=== PATIENT | female | born 1940 | race Caucasian/White ===

== ENCOUNTER 2018-03-25 19:11 | Inpatient (IN) | payer OTHER ==
[~2018-03-25] VITALS: Ht 160 cm; Wt 37.3 kg
[~2018-03-25 19:11] MED LIST: LAC PO; LIPI10 PO; MAC100 PO; MIRALAX17 GM/Dose PO; TOR10 PO
[2018-03-25 19:48] VITALS: Ht 160 cm; Wt 37.3 kg
[2018-03-25 20:30] LABS: BASOPHIL % 0.6 % (0-2); PLATELET COUNT 233 x10^3mcL (130-400); RED CELL DISTRIBUTION WIDTH 14.1 % (11.5-14.5)
[2018-03-25 20:47] LABS: ALKALINE PHOSPHATASE 80 U/L (46-116); ALT/SGPT 29 U/L (14-59); AST/SGOT 34 U/L (15-37); BILIRUBIN TOTAL 0.53 mg/dL (0.20-1.00); CARBON DIOXIDE 25.8 mmol/L (21-32); CHLORIDE SERUM 106 mmol/L (98-107); CREATININE SERUM 0.8 mg/dL (0.6-1.0); FREE T4 1.08 ng/dL (0.76-1.46); GLUCOSE SERUM 98 mg/dL (74-106); LIPASE 155 IU/L (73-393); SODIUM SERUM 137 mmol/L (136-145); TOTAL PROTEIN, SERUM 6.8 g/dL (6.4-8.2)
[2018-03-25 21:07] LABS: CALCIUM 9.6 mg/dL (8.5-10.1)
[2018-03-26 00:26] VITALS: BP 127/56
[2018-03-26 05:26] VITALS: BP 124/60
[2018-03-26 09:15] VITALS: BP 129/39
[2018-03-26 10:48] LABS: CALCIUM 9.2 mg/dL (8.5-10.1); CARBON DIOXIDE 25.6 mmol/L (21-32); CHLORIDE SERUM 110 mmol/L (98-107); CREATININE SERUM 0.8 mg/dL (0.6-1.0); GLUCOSE SERUM 110 mg/dL (74-106); POTASSIUM SERUM 4.1 mmol/L (3.5-5.1); SODIUM SERUM 141 mmol/L (136-145)
[2018-03-26 10:53] LABS: BASOPHIL % 0.4 % (0-2); PLATELET COUNT 187 x10^3mcL (130-400); RED CELL DISTRIBUTION WIDTH 14.2 % (11.5-14.5)
[2018-03-26 17:29] VITALS: BP 123/40
[2018-03-26 20:39] VITALS: BP 115/50
[2018-03-27 05:25] VITALS: BP 123/50
[2018-03-27 09:50] VITALS: BP 145/79
[2018-03-27 12:04] VITALS: BP 145/79
== END 2018-03-27 15:29 | disposition home or self-care (01) | DRG 641 ==
LOC: ED 19:11 → MU 22:59
PROVIDERS: Emergency Medicine; Internal Medicine Nephrology
DX: E86.0 Dehydration (principal); Z68.1 Body mass index [BMI] 19.9 or less, adult; F03.90 Unspecified dementia, unspecified severity, without behavioral disturbance, psychotic disturbance, mood disturbance, and anxiety; E78.5 Hyperlipidemia, unspecified
CPT/HCPCS: 83880; 84439; J0696; J1644; J2543; J7030; J7040; Q0092

== ENCOUNTER 2018-08-28 12:24 | Inpatient (IN) | payer OTHER ==
[~2018-08-28] VITALS: Ht 162.6 cm; Wt 41.8 kg
[2018-08-28 12:25] VITALS: Ht 162.6 cm; Wt 41.8 kg
[2018-08-28 13:22] LABS: BASOPHIL % 0.1 % (0-2); RED CELL DISTRIBUTION WIDTH 14.1 % (11.5-14.5)
[2018-08-28 13:27] LABS: PLATELET COUNT 112 x10^3mcL (130-400)
[2018-08-28 13:35] LABS: UA SPECIFIC GRAVITY 1.015 (1.005-1.035); microscopic required? YES; urine erythrocyte 3+ (NEGATIVE)
[2018-08-28 13:35] LABS: ALKALINE PHOSPHATASE 81 U/L (46-116); ALT/SGPT 58 U/L (14-59); AST/SGOT 73 U/L (15-37); BILIRUBIN TOTAL 0.52 mg/dL (0.20-1.00); CALCIUM 8.8 mg/dL (8.5-10.1); CARBON DIOXIDE 22.1 mmol/L (21-32); CHLORIDE SERUM 105 mmol/L (98-107); CREATININE SERUM 1.3 mg/dL (0.6-1.0); GLUCOSE SERUM 148 mg/dL (74-106); POTASSIUM SERUM 3.4 mmol/L (3.5-5.1); SODIUM SERUM 136 mmol/L (136-145); TOTAL PROTEIN, SERUM 6.1 g/dL (6.4-8.2)
[2018-08-28 13:36] LABS: ALBUMIN 2.8 g/dL (3.4-5.0)
[2018-08-28 13:57] LABS: CK-MB 2.2 ng/mL (0-3.6)
[2018-08-28 16:35] VITALS: BP 96/33
[2018-08-28 18:58] VITALS: BP 124/53
[2018-08-28 20:00] VITALS: BP 92/50
[2018-08-29 05:28] VITALS: BP 107/50
[2018-08-29 06:32] LABS: CALCIUM 8.1 mg/dL (8.5-10.1); CARBON DIOXIDE 22.4 mmol/L (21-32); CHLORIDE SERUM 111 mmol/L (98-107); CREATININE SERUM 0.7 mg/dL (0.6-1.0); GLUCOSE SERUM 81 mg/dL (74-106); POTASSIUM SERUM 3.6 mmol/L (3.5-5.1); SODIUM SERUM 143 mmol/L (136-145)
[2018-08-29 07:20] LABS: PLATELET COUNT 103 x10^3mcL (130-400); RED CELL DISTRIBUTION WIDTH 15.3 % (11.5-14.5)
[2018-08-29 08:23] LABS: BAND NEUTROPHIL 40 % (0-10); MONOCYTE 7 % (0-7); SEGMENTED NEUTROPHILS 45 % (37-75)
[2018-08-29 08:24] LABS: PLATELET MORPHOLOGY PLATELETS NORMAL; rbc morphology (normal/abnorm) NORMAL (NORMAL)
[2018-08-29 09:30] VITALS: BP 105/39
[2018-08-29 12:35] VITALS: BP 110/47
[2018-08-29 17:05] VITALS: BP 114/41
[2018-08-29 20:57] VITALS: BP 112/55
[2018-08-30 04:32] VITALS: BP 113/45
[2018-08-30 06:19] LABS: BASOPHIL % 0.2 % (0-2)
[2018-08-30 06:35] LABS: CALCIUM 8.2 mg/dL (8.5-10.1); CARBON DIOXIDE 21.4 mmol/L (21-32); CHLORIDE SERUM 110 mmol/L (98-107); CREATININE SERUM 0.6 mg/dL (0.6-1.0); GLUCOSE SERUM 90 mg/dL (74-106); POTASSIUM SERUM 3.5 mmol/L (3.5-5.1); SODIUM SERUM 139 mmol/L (136-145)
[2018-08-30 08:18] LABS: PLATELET COUNT 104 x10^3mcL (130-400); RED CELL DISTRIBUTION WIDTH 15.1 % (11.5-14.5)
[2018-08-30 09:56] VITALS: BP 126/82
[2018-08-30] MEDS ORDERED: LEVOFLOXACIN500 M1 PO (09:58)
[2018-08-30 12:29] VITALS: BP 126/82
[2018-08-30 13:26] VITALS: BP 146/89
== END 2018-08-30 14:35 | disposition home or self-care (01) | DRG 871 ==
LOC: ED 12:24 → DU 15:16
PROVIDERS: Emergency Medicine; Internal Medicine Pulmonary Disease
DX: A41.9 Sepsis, unspecified organism (principal); G93.41 Metabolic encephalopathy; N39.0 Urinary tract infection, site not specified; R64 Cachexia; L89.321 Pressure ulcer of left buttock, stage 1; M24.50 Contracture, unspecified joint; F03.90 Unspecified dementia, unspecified severity, without behavioral disturbance, psychotic disturbance, mood disturbance, and anxiety; Z74.01 Bed confinement status
CPT/HCPCS: 83880; J0696; J1650; J7030; Q0092

== ENCOUNTER 2019-02-09 08:12 | Inpatient (IN) | payer OTHER ==
[~2019-02-09] VITALS: Ht 170.2 cm; Wt 47.2 kg
[~2019-02-09 08:12] MED LIST changes: +LEVOFLOXACIN500 M1 PO
[2019-02-09 08:22] VITALS: Ht 170.2 cm; Wt 47.2 kg
[2019-02-09 09:18] LABS: PLATELET COUNT 201 x10^3mcL (130-400); RED CELL DISTRIBUTION WIDTH 14.5 % (11.5-14.5)
[2019-02-09 09:19] LABS: BASOPHIL % 0.7 % (0-2)
[2019-02-09 09:33] LABS: CALCIUM 8.6 mg/dL (8.5-10.1); CARBON DIOXIDE 21.7 mmol/L (21-32); CHLORIDE SERUM 112 mmol/L (98-107); CREATININE SERUM 0.6 mg/dL (0.6-1.0); GLUCOSE SERUM 106 mg/dL (74-106); POTASSIUM SERUM 3.9 mmol/L (3.5-5.1); SODIUM SERUM 146 mmol/L (136-145)
[2019-02-09 09:44] LABS: ALKALINE PHOSPHATASE 82 U/L (46-116); ALT/SGPT 26 U/L (14-59); AMYLASE 69 U/L (25-115); AST/SGOT 11 U/L (15-37); BILIRUBIN TOTAL 0.4 mg/dL (0.20-1.00); CHOLESTEROL 179 mg/dL (<200); HDL CHOLESTEROL 54 mg/dL (40-60); LIPASE 146 IU/L (73-393); MAGNESIUM 1.9 mg/dL (1.8-2.4)
[2019-02-09 09:48] LABS: ALBUMIN 2.8 g/dL (3.4-5.0); T4(THYROXINE) 4.6 ug/dL (4.7-13.3); TOTAL PROTEIN, SERUM 6.1 g/dL (6.4-8.2)
[2019-02-09 10:14] LABS: microscopic required? YES; urine erythrocyte 2+ (NEGATIVE)
[2019-02-09 10:17] LABS: AMPHETAMINE QUAL UR NONE DETECTED (See below)
[2019-02-09 13:55] VITALS: BP 160/117
[2019-02-09 16:59] VITALS: BP 144/58
[2019-02-09 22:17] VITALS: BP 127/63
[2019-02-10 05:49] VITALS: BP 165/74
[2019-02-10 07:43] LABS: BASOPHIL % 0.6 % (0-2); PLATELET COUNT 191 x10^3mcL (130-400); RED CELL DISTRIBUTION WIDTH 14.4 % (11.5-14.5)
[2019-02-10 08:21] LABS: CALCIUM 9.1 mg/dL (8.5-10.1); CARBON DIOXIDE 19.1 mmol/L (21-32); CHLORIDE SERUM 111 mmol/L (98-107); CREATININE SERUM 0.7 mg/dL (0.6-1.0); GLUCOSE SERUM 96 mg/dL (74-106); POTASSIUM SERUM 4.1 mmol/L (3.5-5.1); SODIUM SERUM 143 mmol/L (136-145)
[2019-02-10 08:34] VITALS: BP 159/65
[2019-02-10 12:55] VITALS: BP 150/77
[2019-02-10 17:18] VITALS: BP 179/91
[2019-02-10 21:13] VITALS: BP 163/66
[2019-02-11 05:02] VITALS: BP 170/83
[2019-02-11 08:56] VITALS: BP 123/53
[2019-02-11 12:12] VITALS: BP 154/60
[2019-02-11 14:26] VITALS: BP 163/77
[2019-02-11 17:56] VITALS: BP 164/68
[2019-02-11 20:35] VITALS: BP 128/63
[2019-02-12 06:45] VITALS: BP 135/88
[2019-02-12 07:05] LABS: BASOPHIL % 1.5 % (0-2); PLATELET COUNT 195 x10^3mcL (130-400)
[2019-02-12 08:14] VITALS: BP 154/84
[2019-02-12 09:04] LABS: CHLORIDE SERUM 111 mmol/L (98-107); CREATININE SERUM 0.6 mg/dL (0.6-1.0); GLUCOSE SERUM 82 mg/dL (74-106); POTASSIUM SERUM 4.1 mmol/L (3.5-5.1); SODIUM SERUM 143 mmol/L (136-145)
[2019-02-12] MEDS ORDERED: LEVOFLOXACIN500 M1 PO (09:56)
[2019-02-12 12:09] VITALS: BP 154/84
== END 2019-02-12 14:00 | disposition home or self-care (01) | DRG 690 ==
LOC: ED 08:12 → MU 12:32 → DU 12:32 → MU 12:32 → DU 13:25 → MU 02-11 09:30
PROVIDERS: Emergency Medicine; Internal Medicine; ADMIT Internal Medicine Pulmonary Disease
DX: N39.0 Urinary tract infection, site not specified (principal); E87.0 Hyperosmolality and hypernatremia; E46 Unspecified protein-calorie malnutrition; R56.9 Unspecified convulsions; E86.9 Volume depletion, unspecified; R54 Age-related physical debility; E03.9 Hypothyroidism, unspecified; F03.90 Unspecified dementia, unspecified severity, without behavioral disturbance, psychotic disturbance, mood disturbance, and anxiety; Z74.01 Bed confinement status; Z68.20 Body mass index [BMI] 20.0-20.9, adult
CPT/HCPCS: 82962; 83880; 97110-GP; 97530-GP; G0480; J0696; J1644; J1956; J7030; Q0092